=== PATIENT | female | born 1970 | race Caucasian/White ===

== ENCOUNTER → 2017-04-24 | Outpatient (CLI) | payer BC ==
[~2017-04-24] MED LIST: AMBIEN12.5 MG PO; BUSPAR DIVIDOSE15 MG PO; CALCIUM + D 6001 TA1 PO; CELEXA 20MG20 MG/TA1 PO; GEODON80 MG PO; MAGNESIUM200 MG PO; NORCO 325 MG-51 TAB PO; SINGULAIR10 MG PO; THERAPEUTIC VIT1 CAP PO; TRAZADONE HYDR100 MG PO; TREXIMET PO; XANAX0.5 MG PO
== END ==
LOC: MC.RAD 09:13
DX: Z12.31 Encounter for screening mammogram for malignant neoplasm of breast (principal)

== ENCOUNTER → 2018-05-08 | Outpatient (CLI) | payer BC | LOC: MC.RAD 07:53 | DX: Z12.31 Encounter for screening mammogram for malignant neoplasm of breast (principal) ==

== ENCOUNTER → 2019-07-02 | Outpatient (CLI) | payer BC | LOC: MC.RAD 07:25 | DX: Z12.31 Encounter for screening mammogram for malignant neoplasm of breast (principal) ==

== ENCOUNTER → 2020-07-04 | Outpatient (CLI) | payer BC | LOC: MC.RAD 08:00 | DX: Z12.31 Encounter for screening mammogram for malignant neoplasm of breast (principal) ==

== ENCOUNTER → 2021-07-11 | Outpatient (CLI) | payer BC | LOC: MC.RAD 08:06 | DX: Z12.31 Encounter for screening mammogram for malignant neoplasm of breast (principal) ==

== ENCOUNTER 2023-08-13 12:33 | Emergency (ER) | payer BC ==
[~2023-08-13] VITALS: Ht 157.5 cm; Wt 105.9 kg
[2023-08-13 12:40] VITALS: TEMP 98
[2023-08-13 13:37] LABS: BASO # 0.1 K/mm3 (0.0-0.2); BASO % 1.8 % (0.0-2.0); EOS # 0.5 K/mm3 (0.0-0.7); EOS % 7.8 % (0.0-4.0); GRAN # 2.8 K/mm3 (1.4-6.5); GRAN % 46.6 % (42.2-75.2); HEMATOCRIT 45.6 % (37.0-47.0); HEMOGLOBIN 14.9 g/dl (12.5-16.0); LYMPH # 2.2 K/mm3 (1.2-3.4); LYMPH % 35.8 % (20.0-51.0); MEAN CELL VOLUME 93 fl (80.0-100.0); MEAN CORPUSCULAR HEMOGLOBIN 30 pg (27-31); MEAN CORPUSCULAR HGB CONC 33 g/dl (33.0-37.0); MONO # 0.5 K/mm3 (0.1-0.6); MONO % 7.8 % (1.7-9.3); PLATELET COUNT 392 K/mm3 (130-400); RED BLOOD COUNT 4.92 M/mm3 (4.10-5.30); REDCELL DISTRIBUTION WIDTH-CV 12.5 % (11.5-14.5)
[2023-08-13 16:47] VITALS: O2SAT 94
[2023-08-13 17:20] VITALS: BP 124/76; PULSE 86
== END 2023-08-13 17:20 | disposition home or self-care (01) ==
LOC: COL.ER 12:33
PROVIDERS: Family Medicine
DX: M26.621 Arthralgia of right temporomandibular joint (principal); Z88.6 Allergy status to analgesic agent
CPT/HCPCS: J1100; J2270; J2405; J7030; Q9967